=== PATIENT | male | born 1945 | race Caucasian/White ===

== ENCOUNTER 2018-05-24 22:26 | Observation (INO) | payer MEDICARE ==
[~2018-05-24] VITALS: Ht 177.8 cm; Wt 108.5 kg
[~2018-05-24 22:26] MED LIST: AMILORIDE HCL5 MG PO; LISINOPRIL2.5 MG PO; METFORMIN HCL500 MG PO; METOPROLOL SUCC50 MG PO; XARELTO20 MG PO
[2018-05-24 23:10] LABS: BASOPHILS % 0.5 % (0.0-1.0); EOSINOPHILS # (AUTO) 0.1 (0.0-0.4); EOSINOPHILS % 2.2 % (0.0-6.0); HEMATOCRIT 42.3 % (38.2-49.6); HEMOGLOBIN 14.8 g/dL (14.0-18.0); LYMPHOCYTES # (AUTO) 1.8 (1.0-3.2); LYMPHOCYTES % 29.3 % (18.0-39.1); MEAN CORPUSCULAR VOLUME 88.7 fL (81-99); MONOCYTES # (AUTO) 0.4 (0.2-0.8); MONOCYTES % 6.9 % (4.4-11.3); NEUTROPHILS # (AUTO) 3.6 (2.1-6.9); NEUTROPHILS % 60.9 % (38.7-80.0); PLATELET COUNT 238 x10e3/uL (140-360); RED BLOOD COUNT 4.77 x10e6/uL (4.3-5.7); RED CELL DISTRIBUTION WIDTH 14.6 % (11.7-14.4)
[2018-05-24 23:14] LABS: INR 1.03; PROTHROMBIN TIME 14.4 seconds (11.9-14.5)
[2018-05-24 23:15] LABS: PARTIAL THROMBOPLASTIN TIME 29.7 seconds (23.8-35.5)
[2018-05-24] MEDS ORDERED: DILTIAZEM HCL 5 MG/ML 5 ML VIAL IV ONE (23:15)
[2018-05-24 23:29] LABS: ALANINE AMINOTRANSFERASE 20 IU/L (0-55); ALBUMIN 3.7 g/dL (3.5-5.0); ALBUMIN/GLOBULIN RATIO 1.2 (0.8-2.0); ALKALINE PHOSPHATASE 71 IU/L (40-150); ANION GAP 16.3 mmol/L (8-16); BLOOD UREA NITROGEN 15 mg/dL (7-26); BUN/CREATININE RATIO 17 (6-25); CALCIUM 9.3 mg/dL (8.4-10.2); CARBON DIOXIDE 25 mmol/L (22-29); CHLORIDE 102 mmol/L (98-107); CREATINE KINASE 62 IU/L (30-200); CREATININE, SERUM 0.86 mg/dL (0.72-1.25); EST GLOMERULAR FILTRATION RATE > 60 ML/MIN (60-); GLUCOSE 167 mg/dL (74-118); POTASSIUM 4.3 mmol/L (3.5-5.1); SODIUM 139 mmol/L (136-145)
--- NOTE | 2018-05-24 23:46 | Diagnostic Imaging Report ---
CHEST SINGLE (PORTABLE), 05/24/2018 11:03 PM Technique: CHEST SINGLE (PORTABLE) Comparison: 06/16/2017 Clinical history: Chest pain Findings: See Impression Impression: Limited by body habitus and portable technique. 1. Enlarged cardiomediastinal silhouette. 2. Elevated left hemidiaphragm with overlying atelectasis/scarring. No overt edema. 3. No significant effusion or pneumothorax. Signed by: Dr Lolita Vuong MD on 05/24/2018 11:42 PM
[2018-05-24] MEDS ORDERED: DILTIAZEM HCL LA 120MG 120 MG CAP PO STA (23:47)
[2018-05-24 23:48] LABS: THYROID STIMULATING HORMONE 1.753 uIU/mL (0.350-4.940)
[2018-05-25] MEDS ORDERED: WARFARIN SOD 5 MG TAB PO ONE
[2018-05-25] MEDS ORDERED: DILTIAZEM HCL 60 MG TAB ONE (00:45)
[2018-05-25] MEDS ORDERED: DILTIAZEM HCL 60 MG TAB PO ONE ×2 (01:00→02:30)
[2018-05-25] MEDS ORDERED: LISINOPRIL5 MG PO (01:01)
[2018-05-25] MEDS ORDERED: WARFARIN SODIUM10 MG PO (01:01)
[2018-05-25] MEDS ORDERED: SODIUM CHLORIDE FLUSH 10 ML SYR INJ PRN (02:30)
[2018-05-25] MEDS ORDERED: MORPHINE SULFATE INJ 4 MG/ML INJ 1ML IV PRN (02:30)
[2018-05-25] MEDS ORDERED: DEXTROSE 50% SYRINGE 50 ML IV PRN (03:15)
--- NOTE | 2018-05-25 06:00 | NUR ---
REPORT GIVEN TO EZE GAMEZ DAY SHIFT NURSE.
[2018-05-25] MEDS: METOPROLOL TARTRATE 25 MG TAB PO SCH ×2 (06:39→18:00)
[2018-05-25] MEDS: NITROGLYCERIN 2% OINT 1 GM PKT TOP SCH ×3 (06:39→18:08)
[2018-05-25 07:30] LABS: BASOPHILS % 0.5 % (0.0-1.0); EOSINOPHILS # (AUTO) 0.2 (0.0-0.4); EOSINOPHILS % 2.7 % (0.0-6.0); HEMOGLOBIN 14.2 g/dL (14.0-18.0); LYMPHOCYTES # (AUTO) 1.8 (1.0-3.2); LYMPHOCYTES % 27.5 % (18.0-39.1); MEAN CORPUSCULAR HEMOGLOBIN 31.2 pg (28-32); MEAN CORPUSCULAR HGB CONC 35.5 g/dL (31-35); MEAN CORPUSCULAR VOLUME 87.9 fL (81-99); MONOCYTES # (AUTO) 0.6 (0.2-0.8); MONOCYTES % 8.6 % (4.4-11.3); NEUTROPHILS # (AUTO) 3.8 (2.1-6.9); NEUTROPHILS % 60.4 % (38.7-80.0); PLATELET COUNT 237 x10e3/uL (140-360); RED BLOOD COUNT 4.55 x10e6/uL (4.3-5.7); RED CELL DISTRIBUTION WIDTH 14.7 % (11.7-14.4)
[2018-05-25] MEDS: INSULIN REGULAR, HUMAN 100 UNIT/1 ML 3ML VIAL SQ SCH ×5 (07:31→21:26)
[2018-05-25 08:02] LABS: BLOOD UREA NITROGEN 15 mg/dL (7-26); BUN/CREATININE RATIO 19 (6-25); CALCIUM 9.2 mg/dL (8.4-10.2); CARBON DIOXIDE 27 mmol/L (22-29); CHLORIDE 103 mmol/L (98-107); CHOL/HDL RATIO 2.9 (3.9-4.7); CHOLESTEROL 121 MD/DL (0-199); CREATININE, SERUM 0.77 mg/dL (0.72-1.25); EST GLOMERULAR FILTRATION RATE > 60 ML/MIN (60-); GLUCOSE 116 mg/dL (74-118); HDL CHOLESTEROL 42 MG/DL (40-60); LDL CHOLESTEROL 60 MG/DL (60-130); MAGNESIUM 2.1 MG/DL (1.3-2.1); SODIUM 139 mmol/L (136-145); TRIGLYCERIDES 96 MG/DL (0-149)
[2018-05-25 08:03] LABS: CREATINE KINASE 49 IU/L (30-200)
--- NOTE | 2018-05-25 08:11 | NUR ---
CARDIOLOGY IN TO SEE PATIENT, ORDER FOR STRESS TEST, CONSENT SIGNED AND PLACED INTO CHART.
[2018-05-25] MEDS ORDERED: METOPROLOL TARTRATE 25 MG TAB PO SCH (09:00)
[2018-05-25] MEDS: LISINOPRIL 2.5 MG TAB PO SCH (09:12)
[2018-05-25] MEDS: FAMOTIDINE 20 MG TAB PO SCH ×2 (09:12→21:11)
--- NOTE | 2018-05-25 09:15 | Consultation ---
DATE OF CONSULTATION: May 25, 2018 CARDIOLOGY CONSULTATION REASON FOR CONSULTATION: Chest pain. CONSULTING PHYSICIAN: Dr. Cano HPI: This is a pleasant 72-year-old male that presented with shortness of breath. According to the patient, for the last 5 days he has been having shortness of breath accompanied with chest pain off and on that he decided to come to the emergency room for evaluation today. He described the chest pain as constant pressure on a scale of 3/10 with no radiation. He stated that the chest pain does get worse with exertion. He denied any palpitation, any diaphoresis, any headache, or nausea. Troponin times 1 was negative. EKG was AFib, irregularly irregular. BNP was 177. Chest x-ray showed no significant effusion or pneumothorax. Enlarged cardiomediastinal and elevated left hemidiaphragm. He has a history of AFib and was anticoagulated. PAST MEDICAL HISTORY: Hypertension, diabetes, AFib and obesity. PAST SURGICAL HISTORY: Tonsillectomy, left ankle surgery, and hammertoes. FAMILY HISTORY: Positive for CAD. SOCIAL HISTORY: No smoking. No drinking. He lives at home with family. MEDICATIONS: See med list. ALLERGIES: HE IS NOT ALLERGIC TO ANY MEDICATIONS. REVIEW OF SYSTEMS: Negative except those mentioned above. He is positive for shortness of breath. PHYSICAL EXAMINATION VITAL SIGNS: Temperature 99, heart rate 91, respirations 24, blood pressure 144/95, oxygen saturation 98% on 2 L nasal cannula. GENERAL: He is awake, alert and oriented times 3. HEENT: Mucous membrane moist. NECK: Supple. Lungs bilateral clear to auscultation. CARDIOVASCULAR: Irregularly irregular. ABDOMEN: Soft. NEUROLOGICAL: Intact. EXTREMITIES: With no edema. LABS: Sodium 139, potassium 4.3, chloride 102, CO2 25, BUN 15, creatinine 0.86, glucose 167. White blood cells 6.36, hemoglobin 14.2, hematocrit 40, and platelets 237,000. PT 14.4, PTT 29.7 and INR 1.03. IMPRESSION 1. Chest pain. 2. Shortness of breath. 3. Atrial fibrillation. 4. Diabetes. 5. Obesity. 6. Hypertension. ASSESSMENT AND PLAN 1. Will go ahead and get serial cardiac enzymes. 2. Get an echo to reassess the LV and valve function. 3. Due to the shortness of breath, will go ahead and set him up for Lexiscan Myoview to rule out any occlusion. 4. His heart rate is controlled. Will resume his home Coumadin. 5. He has been counseled on weight reduction. 6. Will continue his home medications. Further cardiac workup pending clinical course. Thank you for this consultation. DICTATED BY NHUNG FROST NP Job#: [id number] RI
[2018-05-25] MEDS ORDERED: REGADENOSON 0.4 MG/5 ML SYR IV ONE (10:22)
--- NOTE | 2018-05-25 11:45 | NUR ---
RECEIVED REPORT FROM VERA LOO TO ASSUME PTS CARE
--- NOTE | 2018-05-25 11:45 | NUR ---
PT GONE FOR STRESS TEST WHEN I RECEIVED REPORT
--- NOTE | 2018-05-25 13:26 | NUR ---
PT JUST RETURNED FROM STRESS TEST
--- NOTE | 2018-05-25 14:22 | Cardiology Report ---
DATE OF STUDY: May 25, 2018 LEXISCAN STRESS TEST INDICATION: Chest pain. DESCRIPTION OF PROCEDURE: After informed consent, the patient was brought to the stress lab. He was given 11 mCi of technetium 99 Myoview, and myocardial perfusion SPECT images were obtained in the horizontal long and short axis and vertical long axis. Subsequently the patient was given 0.4 mg of Lexiscan over 10 seconds. Patient was given 30 mCi of technetium 99 Myoview, and myocardial perfusion SPECT images obtained in the horizontal long and short axis and vertical long axis. Gated images were also obtained. Patient tolerated the procedure without any complications. REPORT: Baseline EKG shows atrial fibrillation at 91 beats per minute, normal axis, normal intervals. Nonspecific ST-T changes. PARAMETERS 1. Resting heart rate is 83 beats per minute. 2. Maximum heart rate is 113 beats per minute. 3. Resting blood pressure 122/93 mmHg. 4. Maximum blood pressure is 136/87 mmHg. REASON FOR TERMINATION: End point attained. INTERPRETATION 1. Negative chest pain. 2. Negative for arrhythmias. 3. Blood pressure response consistent with Lexiscan. 4. No significant ST-T changes seen during Lexiscan infusion compared to baseline. 5. Analysis of SPECT images reveals uniform radioisotope uptake in all segments of myocardium without any significant perfusion defects. CONCLUSIONS 1. No evidence of significant ischemia or infarction on this study. 2. Preserved wall motion. 3. Overall ejection fraction is about 47%. Job#: [id number]
[2018-05-25] MEDS ORDERED: ACETAMINOPHEN 325 MG TAB PO NR (15:00)
--- NOTE | 2018-05-25 15:00 | NUR ---
PT WAS C/O A HEADACHE AND ASKED FOR SOMETHING FOR PAIN. CALLED DR. NGUYEN AND HE GAVE VO TO GIVE TYLENOL 650 MG
[2018-05-25 16:07] VITALS: BP 125/89
[2018-05-25 16:21] LABS: CREATINE KINASE MB 1.4 ng/mL (0-5.0)
[2018-05-25 16:30] VITALS: BP 125/89
[2018-05-25 16:39] VITALS: BP 125/89
--- NOTE | 2018-05-25 16:51 | NUR ---
CALL PLACED OUT TO DR. MONTOYA REGARDING METOPROLOL DOSE- AWAITING CALLBACK.
[2018-05-25] MEDS ORDERED: WARFARIN SOD 5 MG TAB PO SCH (18:00)
--- NOTE | 2018-05-25 18:12 | NUR ---
DR. NGUYEN ON THE UNIT- SPOKE WITH THAT THE PATIENT TAKES METOPROLOL 25MG BID NOT 50MG BID. ORDER TO CHANGE METOPROLOL TO 25MG BID AND ORDER DAILY PT/INR.
--- NOTE | 2018-05-25 19:48 | NUR ---
PATIENT IS IN STABLE CONDITION WITH NO S/S OF RESPIRATORY DISTRESS- NO PAIN VOICED. CALL LIGHT IS WITHIN REACH, PATIENT INSTRUCTED TO CALL FOR ASSISTANCE NEEDED. REPORT GIVEN TO ONCOMING NURSE.
[2018-05-25 20:00] VITALS: BP 132/73
--- NOTE | 2018-05-25 23:25 | History and Physical ---
This is a 72-year-old male who comes in with chest pain. HISTORY OF PRESENTING ILLNESS: This is a 72-year-old male with a history of atrial fibrillation, hypertension, hyperlipidemia, and diabetes mellitus. Started with some shortness of breath on and the patient continued to have shortness of breath. This morning, on admission, the patient had chest pain and came into the emergency room and was admitted for chest pain, rule out acute coronary syndrome. PAST MEDICAL HISTORY: History of hypertension, history of hyperlipidemia, history of atrial fibrillation, and history of obesity. MEDICINES HE TAKES AT HOME 1. Lisinopril 5 mg. 2. Metformin 500 mg. 3. Metoprolol 25 mg twice a day. 4. Warfarin 10 mg daily. PAST SURGICAL HISTORY: History of ankle surgery, otherwise noncontributory. FAMILY HISTORY: History of hyperlipidemia in mother and also history of brain tumor in father. REVIEW OF SYSTEMS: Negative for nausea, vomiting, and diarrhea. Positive for chest pain and shortness of breath. No diplopia, no blurry vision. No hypesthesia, no hyperesthesias. No headaches. PHYSICAL EXAMINATION VITAL SIGNS: Temperature is 96.1, pulse of 98, respirations of 20, blood pressure is 125/89 with pulse oximetry 96% on room air. HEENT: Normocephalic and atraumatic. Pupils are reactive to light and accommodation. CV: S1 and S2, irregularly irregular. ABDOMEN: Soft and nontender. NEUROLOGIC: No focal deficit. EXTREMITIES: No clubbing or cyanosis. No edema. LABORATORY VALUES: Initial white count was 5.97, hemoglobin 14.8, hematocrit of 42.3 and no left shift. Chemistries: Sodium is 139, potassium 4.3, BUN of 15, and creatinine 0.86, and glucose of 167. Troponin was less than 0.01. BNP was 177.6. TSH was 1.73. Total protein was 6.80. IMAGING: Chest x-ray shows enlarged cardiomediastinal silhouette, elevated left hemidiaphragm. No significant effusion or pneumothorax. Chest pain, rule out acute coronary syndrome. Patient's troponin has been trended, so far negative. Patient's stress test done this morning with Dr. Parker shows negative for chest pain. No ischemia or infarction in the study. Preserved left wall motion and also overall ejection fraction is about 47%. ASSESSMENT 1. Atrial fibrillation. 2. Chest pain. 3. Acute congestive heart failure. PLAN 1. Continue on medications. 2. We will also give the patient some Lasix 20 mg p.o. daily. 3. Continue with his metoprolol twice a day. I will continue with lisinopril 5 mg. The patient, since the stress test has been normal, can be discharged tomorrow, to be followed up with Dr. Parker at a later date. Also to be followed up with me at a later date. Further recommendations per clinical course. We will continue to monitor the patient on a daily basis. Job#: [id number] CF
[2018-05-26] VITALS: BP 119/82
--- NOTE | 2018-05-26 | NUR ---
PT REFUSED MIDNIGHT DOSE OF NITROBID. STATES IT "GIVES HIM A HEADACHE". PT ALSO STATED THAT HE TOOK OF THE 1800 05/25/18 DOSE OF NITROBID WELL.
[2018-05-26 04:50] VITALS: BP 128/98
--- NOTE | 2018-05-26 05:45 | NUR ---
SPOKE WITH DR BYERS REGARDING TELEMETRY READINGS. PT TACHYCARDIC. HR RANGING FROM LOW 110'S TO HIGH 150'S, AFIB. STAT ORDER FOR AMIODARONE GIVEN, AND PRN LOPRESSOR AND DIGOXIN. PT ASYMPTOMATIC.
[2018-05-26] MEDS ORDERED: AMIODARONE HCL 200 MG TAB PO STA (05:47)
[2018-05-26] MEDS ORDERED: METOPROLOL TARTRATE 25 MG TAB PO SCH ×2 (06:00→14:00)
[2018-05-26] MEDS ORDERED: DIGOXIN INJ 0.25 MG/ML 2 ML AMP IV PRN (06:00)
[2018-05-26] MEDS ORDERED: METOPROLOL TARTRATE INJ 1 MG/ML VIAL IV PRN (06:00)
[2018-05-26] MEDS: NITROGLYCERIN 2% OINT 1 GM PKT TOP SCH ×3 (06:26→12:00)
--- NOTE | 2018-05-26 06:49 | NUR ---
HR LOWER NOW. AFIB 107 PER TELEMETRY. PT ASLEEP.
[2018-05-26] MEDS: INSULIN REGULAR, HUMAN 100 UNIT/1 ML 3ML VIAL SQ SCH ×2 (07:30→11:30)
--- NOTE | 2018-05-26 07:34 | Discharge Summary ---
MR: Azul lange, 00:24 seconds LYNDSAY NGUYEN MD Job#: [id number]
--- NOTE | 2018-05-26 07:42 | Progress Note ---
DATE: May 26, 2018 The patient is in 293, observation. The patient came in with chest pain. Had a stress test done. Lexiscan was negative. The patient will be discharged today. However, last night the patient recorded elevated heart rate. The patient went up into the 120s and 130s and trended down to the 100s and now is in the 90s to 100s. Currently asymptomatic. No chest pain. No palpitations. No shortness of breath. No nausea, vomiting, diarrhea. No constipation. No rectal bleeding. No orthopnea or PND. The patient is currently on lisinopril, metformin, metoprolol and warfarin 10 mg. The INR has been maintained and monitored daily. PHYSICAL EXAMINATION GENERAL: Alert and oriented x3. VITAL SIGNS: Temperature is 98.2, pulse 120, blood pressure 128/98, pulse oximetry 97%. HEENT: Normocephalic and atraumatic. Pupils are reactive to light and accommodation. CV: S1 and S2, irregularly irregular. ABDOMEN: Nontender and nondistended. EXTREMITIES: No clubbing, no cyanosis, no edema. As mentioned above, the Lexiscan was negative. The EF was 47%. ASSESSMENT 1. Atrial fibrillation. 2. Chest pain, atherosclerotic cardiovascular disease. 3. Congestive heart failure. PLAN: Will start the patient on some Lasix 20 mg daily. For rate control, if agreeable with cardiology, will increase the metoprolol to 25 mg 3 times a day. Further recommendations per clinical course. Once the rate is controlled, the patient can be discharged home. The patient did get 1 dose of amiodarone 200 mg yesterday. Will continue to monitor the patient. As mentioned above, if agreeable with cardiology, the patient can be discharged home today. Job#: [id number]
[2018-05-26 08:05] LABS: INR 1.03; PROTHROMBIN TIME 14.4 seconds (11.9-14.5)
[2018-05-26 08:34] VITALS: BP 116/71
[2018-05-26] MEDS: FAMOTIDINE 20 MG TAB PO SCH (08:41)
[2018-05-26] MEDS: LISINOPRIL 2.5 MG TAB PO SCH (08:41)
[2018-05-26] MEDS ORDERED: WARFARIN SOD 5 MG TAB PO NR (09:45)
--- NOTE | 2018-05-26 10:21 | NUR ---
CALLED AND SPOKE WITH DR. NGUYEN, PER NHUNG'S, N.P. REQUEST, TO INFORM THE INR LEVEL IS NOT IN THERAPEUTIC RANGE. DR. NGUYEN AWARE - ORDER TO DISCHARGE PATIENT AND F/U IN 1 WEEK.
[2018-05-26] MEDS ORDERED: METOPROLOL SUCC25 MG PO (11:48)
[2018-05-26] MEDS ORDERED: LASIX20 MG PO (11:49)
[2018-05-26] MEDS ORDERED: WARFARIN SOD 5 MG TAB PO ONE (12:00)
[2018-05-26 12:20] VITALS: BP 134/87
--- NOTE | 2018-05-26 12:26 | NUR ---
PATIENT DISCHARGE HOME- PATIENT OFF THE UNIT AT 1226 PER WHEELCHAIR TO THE FRONT LOBBY BY PCT. PATIENT IS IN STABLE CONDITION WITH NO S/S OF RESPIRATORY DISTRESS. NO PAIN VOICED. IV REMOVED AT 1220 WITH TIP INTACT. DISCHARGE TEACHING, INSTRUCTIONS AND MEDICATIONS GIVEN TO THE PATIENT. ALL PERSONAL ITEMS TAKEN WITH THE PATIENT. PATIENT RECEIVED FULL SCHEDULED DOSE (10MG) OF COUMADIN TODAY DIRECTED BY DR. MONTOYA.
== END 2018-05-26 12:41 | disposition home or self-care (01) ==
LOC: ER 22:26 → ERHOLD 05-25 06:58 → MED/SURG3 05-25 15:22
PROVIDERS: ADMIT Family Medicine; ATTEND Family Medicine
DX: I11.0 Hypertensive heart disease with heart failure (principal); I48.2 Chronic atrial fibrillation; Z79.01 Long term (current) use of anticoagulants; E11.9 Type 2 diabetes mellitus without complications; I10 Essential (primary) hypertension; Z79.4 Long term (current) use of insulin; E78.5 Hyperlipidemia, unspecified; I25.10 Atherosclerotic heart disease of native coronary artery without angina pectoris; E66.9 Obesity, unspecified; Z68.34 Body mass index [BMI] 34.0-34.9, adult; I50.9 Heart failure, unspecified
CPT/HCPCS: 36415 ×3; 71045; 78452; 80048; 80053; 80061; 82550 ×2; 82553 ×2; 82948 ×2; 83735 ×2; 83880; 84443; 84484 ×2; 85025 ×2; 85379; 85610 ×2; 85730; 93005; 93017; 93306; 99284; A9502; G0378 ×2; J1817; J2785